=== PATIENT | female | born 2005 | race Caucasian/White ===

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

== ENCOUNTER 2023-07-24 20:37 | Emergency (ER) | payer SELFPAY ==
[~2023-07-24] VITALS: Ht 154 cm; Wt 72.0 kg
[~2023-07-24 20:37] MED LIST changes: +CIPR7.5D6 OT
[2023-07-24 20:48] VITALS: BP 145/93
--- NOTE | 2023-07-24 21:21 | ED Abdominal Pain ---
General Chief Complaint: General Problems/Pain Stated Complaint: AB PAIN Nursing Triage Note: PT TO ED W/ C/O BILAT SIDE PAIN BY RIBS, INTERMITTENT, DENIES C/O PAIN AT THIS TIME. REPORTS HAD TO LEAVE WORK DUE TO PAIN EARLIER Source of Information: Patient Exam Limitations: No Limitations (EDU WYATT) History of Present Illness Date Seen by Provider: Jul 24, 2023 Time Seen by Provider: 21:19 Initial Comments Patient is a 17-year-old female who presents the ED with bilateral abdominal pain. Pain is intermittent. Pain over the past week. Described as a dull pain which seems to be worse with movement. No worsening pain with eating. She denies fever, vomiting, diarrhea. She does report some frequent urination urinating every 3 minutes. No vaginal bleeding or vaginal discharge. Last mens trual cycle 2 weeks ago. No history of previous surgeries. She denies taking medication. She denies cough, chest pain, shortness of breath, ear pain, fever, chills, body aches headache or dizziness. She is currently pain-free. Patient states when the pain does occur it is very manageable. Severity of pain as high as 6 out of 10. (EDU WYATT) Allergies and Home Medications Allergies Coded Allergies: egg (Verified Allergy, Unknown, 09/21/19) peanut (Verified Allergy, Unknown, 09/21/19) Patient Home Medication List Home Medication List Reviewed: Yes (EDU WYATT) Ciprofloxacin HCl/Dexameth (Ciproflox-Dexameth Otic Susp) 0.3 %-0.1 % Drops.susp, 3 DROPS OT BID Prescribed by: DANIS VALDEZ on 06/24/22 0055 Nitrofurantoin Monohyd/M-Cryst (Macrobid 100 mg Capsule) 100 Mg Capsule, 1 TAB PO BID Prescribed by: BRISA DECKER on 02/12/22 211 Nitrofurantoin Monohyd/M-Cryst (Macrobid 100 mg Capsule) 100 Mg Capsule, 1 TAB PO BID Prescribed by: MARIO FOX on 05/06/222201 Ondansetron (Ondansetron Odt) 4 Mg Tab.rapdis, 4 MG PO Q8H PRN for NAUSEA/VOMITING Prescribed by: DANIS VALDEZ on 09/21/19 1655 Review of Systems Review of Systems Constitutional: No chills, No diaphoresis EENTM: No Blurred Vision, No Double Vision, No Eye Pain Respiratory: Denies Cough, Denies Orthopnea Cardiovascular: Denies Chest Pain Gastrointestinal: Abdominal Pain Genitourinary: Denies Burning, Denies Discharge; Frequency; Denies Flank Pain, Denies Hematuria Musculoskeletal: No back pain, No joint pain Skin: No change in color, No change in hair/nails Psychiatric/Neurological: Denies Anxiety, Denies Depressed (EDU WYATT) All Other Systems Reviewed Negative Unless Noted: Yes (EDU WYATT) Past Djfveal-Gahtzp-Spamom Hx Immunizations Up To Date Tetanus Booster (TDap): Unknown PED Vaccines UTD: Yes (EDU WYATT) Seasonal Allergies Seasonal Allergies: No (EDU WYATT) Past Medical History Surgery/Hospitalization HX: none Surgeries: No Respiratory: No Cardiac: No Neurological: No Reproductive Disorders: No Female Reproductive Disorders: Denies Genitourinary: No Gastrointestinal: No Musculoskeletal: No Endocrine: No HEENT: No Loss of Vision: Denies Hearing Impairment: Denies Cancer: No Psychosocial: Yes ADD/ADHD, Anxiety, Depression Integumentary: No Blood Disorders: No Adverse Reaction/Blood Tranf: No (EDU WYATT) Physical Exam Vital Signs Vital Signs - First Documented 07/24/23 20:48 Temp 36.8 Pulse 73 Resp 20 B/P (MAP) 145/93 (110) Pulse Ox 97 O2 Delivery Room Air (DOMINIQUE,MARIO K DO) Vital Signs Capillary Refill : Less Than 3 Seconds (EDU WYATT) Height/Weight/BMI Height: '" Weight: lbs. oz. kg; 30.00 BMI Method: General Appearance: WD/WN, no apparent distress HEENT: PERRL/EOMI, normal ENT inspection, TMs normal, pharynx normal Neck: non-tender, full range of motion, supple Respiratory: chest non-tender, lungs clear, normal breath sounds, no respiratory distress, no accessory muscle use Cardiovascular: regular rate, rhythm, no edema, no gallop, no JVD Gastrointestinal: normal bowel sounds, non tender, soft, no organomegaly Extremities: normal range of motion, non-tender, normal inspection, no pedal edema, no calf tenderness Back: normal inspection, no CVA tenderness, no vertebral tenderness 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, no motor/sensory deficits, alert, normal mood/affect, oriented x 3 Skin: normal color, warm/dry (EDU WYATT) Progress/Results/Core Measures Results/Orders Lab Results Laboratory Tests Test 07/24/23 21:21 Range/Units Urine Color YELLOW Urine Clarity CLEAR Urine pH 5.5 5-9 Urine Specific [place] >=1.030 1.016-1.022 Urine Protein TRACE H NEGATIVE Urine Glucose (UA) NEGATIVE NEGATIVE Urine Ketones TRACE H NEGATIVE Urine Nitrite NEGATIVE NEGATIVE Urine Bilirubin 1+ H NEGATIVE Urine Urobilinogen 1.0 < = 1.0 MG/DL Urine Leukocyte Esterase NEGATIVE NEGATIVE Urine RBC (Auto) TRACE H NEGATIVE Urine RBC 0-2 /HPF Urine WBC 2-5 /HPF Urine Squamous Epithelial Cells 2-5 /HPF Urine Crystals NONE /LPF Urine Bacteria FEW H /HPF Urine Casts NONE /LPF Urine Mucus MODERATE H /LPF Urine Culture Indicated YES Urine Test NEGATIVE NEGATIVE (DOMINIQUE,MARIO Ananth MINAYA) Vital Signs/I&O 07/24/23 20:48 Temp 36.8 Pulse 73 Resp 20 B/P (MAP) 145/93 (110) Pulse Ox 97 O2 Delivery Room Air (MARIO FOX ) Blood Pressure Mean: 110 Departure Communication (PCP) Reviewed previous visits, H&P, lab testing. Patient with intermittent lateral abdominal pain. Seems to be more notable with movement. No fever vomiting or diarrhea. She does report some frequent urination. Last menstrual cycle few weeks ago. No previous abdominal surgery. Patient vital signs stable. She does not appear in acute distress. Exam was benign. Soft abdomen without any tenderness. No flank tenderness. No chest pain, cough or shortness of breath or flulike symptoms. Suggest at this time getting a urine due to the frequent urination. Clinically does not appear surgical. Exam benign. Urinalysis wi thout strong evidence of infection. Culture pending. There is no evidence of white blood cells or leukocytes suggesting UTI. Will not treat at this time and will treat if culture returns positive. Suggest anti-inflammatories at this time as this appears to be more muscular. If developing fever, vomiting or diarrhea or localized severe abdominal pain to return back to ED. Follow-up your PCP in 2 to 3 days for reevaluation. Patient agrees with plan of action. (EDU WYATT) Impression Primary Impression: Abdominal pain Disposition: 01 HOME, SELF-CARE Condition: Stable Departure-Patient Inst. Decision time for Depature: 21:53 (EDU WYATT) Referrals: [facility],LOCAL PHYSICIAN (PCP) Primary Care Physician Patient Instructions: Abdominal pain Add. Discharge Instructions: Suggest taking anti-inflammatories for pain. If increasing pain, fever, vomiting to return back to ED. All discharge instructions reviewed with patient and/or family. Voiced understanding. Work/School Note: Work Release Form Date Seen in the Emergency Department: Jul 24, 2023 Return to Work: Jul 25, 2023 ATTENDING PHYSICIAN NOTE: I WAS PHYSICALLY PRESENT ER PHYSICIAN, BUT I WAS NOT INVOLVED IN ANY DECISION MAKING OR ANY CARE OF THIS PATIENT, AND I AM NOT COLLABORATING PHYSICIAN. (MARIO FOX DO) EDU WYATT Jul 24, 2023 21:21 MARIO FOX DO Jul 25, 2023 06:42
[2023-07-24 21:45] LABS: CLARITY,URINE CLEAR; COLOR,URINE YELLOW; PH,URINE 5.5 (5-9)
[2023-07-24 21:46] LABS: BILIRUBIN,URINE 1+ (NEGATIVE); GLUCOSE, URINE (UA) NEGATIVE (NEGATIVE); KETONES,URINE TRACE (NEGATIVE); LEUKOCYTE ESTERASE ,URINE NEGATIVE (NEGATIVE); NITRITE,URINE NEGATIVE (NEGATIVE); PROTEIN,URINE TRACE (NEGATIVE); RBC,URINE 0-2 /HPF
[2023-07-24 21:47] LABS: BACTERIA,URINE FEW /HPF
== END 2023-07-24 21:56 | disposition home or self-care (01) ==
LOC: EDUNIT# 20:37 → ER 20:39
DX: R10.9 Unspecified abdominal pain (principal)
CPT/HCPCS: 81000; 84703; 87088; 99282

== ENCOUNTER 2023-11-06 14:21 | Emergency (ER) | payer SELFPAY ==
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
[2023-11-06 15:28] LABS: BASOPHILS % (AUTO) 1 % (0-10); EOSINOPHILS % (AUTO) 1 % (0-10); HEMATOCRIT 40 % (35-52); LYMPHOCYTES # (AUTO) 1.7 10^3/uL (1.0-4.0); LYMPHOCYTES % (AUTO) 22 % (12-44); MEAN CORPUSCULAR HEMOGLOBIN 27 pg (25-34); MEAN CORPUSCULAR HGB CONC 32 g/dL (32-36); MEAN CORPUSCULAR VOLUME 82 fL (80-99); MEAN PLATELET VOLUME 10.7 fL (9.0-12.2); MONOCYTES # (AUTO) 0.6 10^3/uL (0.0-1.0); MONOCYTES % (AUTO) 7 % (0-12); NEUTROPHILS # (AUTO) 5.4 10^3/uL (1.8-7.8); NEUTROPHILS % (AUTO) 70 % (42-75); PLATELET COUNT 304 10^3/uL (130-400); WHITE BLOOD COUNT 7.7 10^3/uL (4.3-11.0)
[2023-11-06 15:31] LABS: HCG,QUALITATIVE URINE NEGATIVE (NEGATIVE)
[2023-11-06 15:36] LABS: ALBUMIN 4.2 GM/DL (3.2-4.5); CHLORIDE 111 MMOL/L (98-107); POTASSIUM 3.9 MMOL/L (3.6-5.0); SODIUM 141 MMOL/L (135-145)
[2023-11-06 15:37] LABS: CALCIUM 9.4 MG/DL (8.5-10.1)
[2023-11-06 15:38] LABS: CLARITY,URINE CLEAR; COLOR,URINE YELLOW; GLUCOSE, URINE (UA) NEGATIVE (NEGATIVE); KETONES,URINE TRACE (NEGATIVE); NITRITE,URINE NEGATIVE (NEGATIVE); PROTEIN,URINE TRACE (NEGATIVE)
[2023-11-06 15:39] LABS: GLUCOSE 119 MG/DL (70-105)
[2023-11-06 15:39] LABS: BACTERIA,URINE LARGE /HPF; BILIRUBIN,URINE 1+ (NEGATIVE); LEUKOCYTE ESTERASE ,URINE TRACE (NEGATIVE); RBC,URINE 0-2 /HPF; WBC,URINE 0-2 /HPF
[2023-11-06 15:40] LABS: BILIRUBIN,TOTAL 0.2 MG/DL (0.1-1.0); CARBON DIOXIDE 20 MMOL/L (21-32)
[2023-11-06 15:42] LABS: ALKALINE PHOSPHATASE 66 U/L (40-136); CREATININE SERUM 0.76 MG/DL (0.60-1.30); GFR ESTIMATED 116
[2023-11-06 15:43] LABS: AMPHETAMINE SCREEN, URINE NEGATIVE (NEGATIVE); BARBITURATE SCREEN URINE NEGATIVE (NEGATIVE); CANNABINOID SCREEN, URINE NEGATIVE (NEGATIVE); COCAINE SCREEN URINE NEGATIVE (NEGATIVE); METHADONE STAT NEGATIVE (NEGATIVE); OPIATE SCREEN URINE NEGATIVE (NEGATIVE); OXYCODONE STAT NEGATIVE (NEGATIVE); TRICYCLIC ANTIDEPRESSANTS SCRE NEGATIVE (NEGATIVE)
[2023-11-06 15:44] LABS: BUN/CREATININE RATIO 26
[2023-11-06 15:45] LABS: SALICYLATE < 5.0 MG/DL (5.0-20.0)
[2023-11-06 15:46] LABS: ALANINE AMINOTRANSFERASE 10 U/L (0-55)
[2023-11-06 15:56] LABS: ACETAMINOPHEN < 10 UG/ML (10-30)
[2023-11-06 16:05] LABS: TSH (THYROID ANALYZER) 1.72 UIU/ML (0.35-4.94)
[2023-11-07 14:32] VITALS: BP 135/86
== END 2023-11-07 14:32 ==
LOC: EDUNIT# 14:21 → ER 14:23
DX: R45.851 Suicidal ideations (principal)
CPT/HCPCS: 80053; 80306; 81000; 84443; 84703 ×2; 85025; 87636; 99283; G0480 ×3; 36415; 80320; 80329; 93005